=== PATIENT | female | born 1980 ===

== ENCOUNTER 2018-02-12 04:53 | Inpatient (IN) | payer BC ==
[2018-02-12] MEDS ORDERED: MISOPROSTOL 200 MCG TAB PR PRN (05:11)
[2018-02-12] MEDS ORDERED: OXYTOCIN/RINGERS LACTATE 1,000 ML IV PRN (05:11)
[2018-02-12] MEDS ORDERED: TERBUTALINE SULFATE 1 MG/ML VIAL IV PRN (05:11)
[2018-02-12] MEDS ORDERED: LIDOCAINE 1% 300 MG/30 ML SDV SC PRN (05:11)
[2018-02-12] MEDS ORDERED: IBUPROFEN 600 MG TAB PO PRN (05:11)
[2018-02-12] MEDS ORDERED: OLIVE OIL 118 ML BTL MISC PRN (05:11)
[2018-02-12] MEDS ORDERED: LR 1,000 ML IV PRN (05:11)
[2018-02-12] MEDS ORDERED: EPSOM SALT 454 GM TP PRN (05:11)
--- NOTE | 2018-02-12 05:14 | PDGENHP ---
History and Physical History and Physical: [facility] HPI: Patient is a 38 yo G 5 P3013 at 40.3 weeks ega who presents to L&D as a transfer from the [facility] for pain relief. Requesting epidural. She has been laboring off and on for the last 24 hours but became active around 2300 last night, AROM clear fluid at 2330 and the bookkeeper receptionist at the center called her complete and 0 station at midnight. She has been pushing off and on since then with little decent and has developed a swollen rim of cervix. Ita reports good activity and FHTs have been reassuring via intermittent monitoring. EDC: 02/09/2018 which is based on LMP: 05/06/2017 Her is complicated by: - AMA - h/o shoulder dystocia with last delivery Review of Systems: Constitutional: Denies any fever, chills, or fatigue HEENT: denies any visual changes, difficulty swallowing, hearing loss Cardiovascular: Denies any chest pain, palpitations, leg swelling Respiratory: denies any cough, wheezing, or shortness of breathe GI: Denies any nausea, vomiting, diarrhea, constipation : denies any dysuria, urgency, frequency, vaginal bleeding Musculoskeletal: denies any muscle or bone pain Skin: denies any rashes Neuro: denies any headache, seizures, lightheadedness, dizziness, or loss of consciousness Psychiatric: denies any depression, anxiety, or SI/HI thoughts HISTORY: Previous OB history: SAB X1, 2010-8 lb 5 oz male,2012-8 lb 13 oz male, 2014-8 lb 7 oz male, reports questionable shoulder dystocia with last -was in the tub and when removed from tub, baby delivered easily. Past medical history: none Past surgical history: none Medications: PNV Allergies (list reaction): NKDA LABS: Rh: A pos ABS: Neg Rubella: Immune HbsAg: NR HIV: NR VDRL: NR 1hr: 79 GC: Neg Chlamydia: Neg Pap: Normal GBS: neg PHYSICAL EXAM: Constitutional: WN, A&Ox3 Skin: pink, warm and dry HEENT: normocephalic atraumatic, supple Heart: RRR, no murmur Chest: CTA-B Abdomen: Soft, nontender, gravid SVE: stretchy 8-9 cm/swollen/-1 station Extremities: sml edema, negative fatoumata's sign Neuro: grossly normal Psych: normal affect assessment: Category 2 FHTs, baseline 140s +accels, intermittent variable decels to 90s, moderate variability Contractions: toco q 2-3 Assessment: 1) 38 yo G 5 P 3 with IUP@ 40.3 weeks ega - requesting epidural 2) Protracted active phase - persistent cervical rim 3) GBS neg 4) Cat 2 FHR tracing Plan: 1) Admit to L&D 2) epidural per anesthesia 3) Continuous efm - will place IUPC when comfortable with epidural to assess contraction strength - consider amnioinfusion if variables persist 4) Dr. Yanez notified of patient and EFM strip 5) Anticipate
[2018-02-12 05:24] LABS: PLATELET COUNT 172 10^3/uL (150-400)
[2018-02-12] MEDS ORDERED: BUPIVACAINE 0.25% 30 ML SDV ONE (05:39)
[2018-02-12] MEDS ORDERED: fentaNYL 2MCG/ML/BUP 0.1% RTU 100 ML BAG EP ONE (05:40)
--- NOTE | 2018-02-12 06:03 | PREANESOB ---
Anesthesia Allergies/Adverse Reactions: Allergy/AdvReac Type Severity Reaction Status Date / Time No Known Allergies Allergy Unverified 02/12/18 05:02 Visit Medications: Generic Name Dose Route Start Last Admin Trade Name Ita PRN Reason Stop Dose Admin Lactated Ringer's 1,000 mls @ 0 mls/hr 02/12/18 05:11 Lr IV 02/13/18 05:10 PRN PRN SEE PROTOCOL CONDITIONS Protocol Per Protocol Oxytocin/Lactated Ringer's 1,000 mls @ 125 mls/hr 02/12/18 05:11 Pitocin 20 Units/Lr (Premix) IV PRN PRN Post bleeding Ibuprofen 600 mg 02/12/18 05:11 Motrin PO ONCE PRN post , pain Lidocaine HCl 300 mg 02/12/18 05:11 Lidocaine Hcl 1% SC 08/11/18 05:10 ONCE PRN episiotomy Magnesium Sulfate 454 gm 02/12/18 05:11 Epsom Salt TP 08/11/18 05:10 Q1H PRN perineal discomfort Misoprostol 800 - 1,000 mcg 02/12/18 05:11 Cytotec CO ONCE PRN Vaginal Atony/Bleeding [place] Oil 118 ml 02/12/18 05:11 Sweet Oil MISC 08/11/18 05:10 ONCE PRN perineal massage Terbutaline Sulfate 0.25 mg 02/12/18 05:11 Brethine IV 08/11/18 05:10 ONCE PRN Tachysystole Discontinued Medications Generic Name Dose Route Start Last Admin Trade Name Ita PRN Reason Stop Dose Admin Bupivacaine HCl Confirm 02/12/18 05:39 Sensorcaine 0.25% Sdv Administered 02/12/18 05:40 Dose 30 ml .ROUTE .STK-MED ONE Fentanyl/Bupivacaine HCl Confirm 02/12/18 05:40 Fentanyl/Bupivacaine/Ns 2 Mcg/Ml 0.1% (Premix Administered 02/12/18 05:41 Dose 100 ml EP .STK-MED ONE - Focused Exam Mallampati Score: Class 2 Labs: 02/12/18 05:00 Patient ABO/Rh A POSITIVE 02/12/18 05:00 - Plan Consent Signed and on Chart: Yes Patient/Guardian Understands and Agrees to Plan: Yes Urgent/Emergent Case: Veronica matthews completed preop but documented later for safe timely pt care
[2018-02-12] MEDS ORDERED: ONDANSETRON 4 MG/2 ML VIAL IVP PRN (06:04)
[2018-02-12] MEDS ORDERED: METOCLOPRAMIDE 10 MG/2 ML VIAL IVP PRN (06:04)
[2018-02-12] MEDS ORDERED: PHENYLEPHRINE HCL 100 MCG/ML SYR IVP PRN (06:04)
[2018-02-12] MEDS ORDERED: fentaNYL 2MCG/ML/BUP 0.1% RTU 100 ML EP SCH (06:30)
[2018-02-12] MEDS ORDERED: LR 500 ML IV SCH (06:30)
[2018-02-12] MEDS ORDERED: LR 500 ML IV PRN ×2 (06:54→10:21)
[2018-02-12] MEDS ORDERED: OXYTOCIN/RINGERS LACTATE 500 ML IV SCH ×2 (07:00→10:30)
[2018-02-12] MEDS ORDERED: OLIVE OIL 118 ML BTL ONE (10:01)
[2018-02-12] MEDS ORDERED: AMMONIA AROMATIC 1 EACH AMP IH ONE (10:01)
[2018-02-12] MEDS ORDERED: LIDOCAINE 1% 300 MG/30 ML SDV ONE (10:01)
[2018-02-12] MEDS ORDERED: TERBUTALINE SULFATE 1 MG/ML VIAL ONE (10:01)
[2018-02-12] MEDS ORDERED: MISOPROSTOL 200 MCG TAB ONE (10:02)
[2018-02-12] MEDS ORDERED: OXYTOCIN 10 UNIT/ML VIAL ONE (10:02)
--- NOTE | 2018-02-12 10:16 | OBPROG ---
Labor Progress Note Assessment/Plan: Assessment: [id number] with IUP@ 40-3wks Protracted labor GBS Negative Cat 2 FHR Tracing Plan: Start amnioinfusion start pitocin - pt agreeable to starting at 1030 reassess 2hr/PRN Subjective/Intrapartum Course: 02/12/18 9:55 Pt doing well, states she is comfortable with ANTON, but still able to tell when she is sonal, states she also feels some vaginal pressure. Denies any pain. Objective: 02/12/18 05:00 Patient ABO/Rh A POSITIVE 02/12/18 05:00 - SVE Dilation (cm): 8 Effacement (%): 50 Station: -1 Membranes: SROM Amniotic Fluid Color: Clear - Contraction Pattern Assessment Current Contraction Pattern: Irregular - Procedures Non-surgical Procedures: IUPC Oxytocin Orders Assessment - Pre-Induction/Augmentation Assessment Gestational Age: 40 week(s) and 3 day(s) ICD10 Worksheet Patient Problems: Problems Problem Status Onset Admitted to labor and delivery Acute - ICD10 Problem Qualifiers (1) Admitted to labor and delivery
--- NOTE | 2018-02-12 15:35 | OBPROG ---
Labor Progress Note Assessment/Plan: Assessment: [id number] with IUP@ 40-3wks Protracted labor GBS Negative Cat 2 FHR Tracing Plan: cont pitocin amnioinfusion continuing at 150/hr Dr Holm aware of protracted labor/variables Subjective/Intrapartum Course: 02/12/18 9:55 Pt doing well, states she is comfortable with ANTON, but still able to tell when she is sonal, states she also feels some vaginal pressure. Denies any pain. 02/12/18 12:55 Pt doing well. will cont to reposition to facilitate baby rotation. Denies any pain, reports vaginal pressure. Objective: 02/12/18 05:00 Patient ABO/Rh A POSITIVE 02/12/18 05:00 - SVE Dilation (cm): 8 Effacement (%): 50 Station: -1 Membranes: SROM Amniotic Fluid Color: Clear - Contraction Pattern Assessment Current Contraction Pattern: Irregular - Procedures Non-surgical Procedures: IUPC Oxytocin Orders Assessment - Pre-Induction/Augmentation Assessment Gestational Age: 40 week(s) and 3 day(s) ICD10 Worksheet Patient Problems: Problems Problem Status Onset Admitted to labor and delivery Acute - ICD10 Problem Qualifiers (1) Admitted to labor and delivery
--- NOTE | 2018-02-12 15:37 | OBDEL ---
Info Type: Vaginal Presentation at Delivery: Vertex L&D Analgesia/Anesthesia Type: Epidural GBS+: No Intrapartum Medications: Generic Name Dose Route Start Last Admin Trade Name Freq PRN Reason Stop Dose Admin Diphenhydramine HCl 25 mg 02/12/18 06:25 02/12/18 06:43 Benadryl Injection IVP 08/11/18 06:24 25 mg Q4HRS PRN Administration swollen cervix Lactated Ringer's 1,000 mls @ 0 mls/hr 02/12/18 05:11 02/12/18 05:10 Lr IV 02/13/18 05:10 1,000 mls PRN PRN Administration SEE PROTOCOL CONDITIONS Protocol Per Protocol Oxytocin/Lactated Ringer's 500 mls @ 0 mls/hr 02/12/18 10:30 02/12/18 10:38 Pitocin 30 Units/Lr (Premix) IV 08/11/18 10:29 500 mls CONT NANDA Administration Protocol Per Protocol - Hospital Course Intrapartum: 02/12/18 9:55 Pt doing well, states she is comfortable with ANTON, but still able to tell when she is sonal, states she also feels some vaginal pressure. Denies any pain. 02/12/18 12:55 Pt doing well. will cont to reposition to facilitate baby rotation. Denies any pain, reports vaginal pressure. Indications for Delivery: Spontaneous Labor, SROM Vaginal Delivery - Delivery Provider Delivery Physician/CNM: Merna Ang - Labor and Delivery Onset of Contractions Date: 02/11/18 Onset of Contractions Time: 23:00 Onset of Contractions Type: Augmented Rupture of Membranes Date: 02/11/18 Rupture of Membranes Time: 23:30 Rupture of Membranes Type: Artificial Amniotic Fluid Color: Clear Dilation Complete Date: 02/12/18 Dilation Complete Time: 14:52 Placenta Delivery Date: 02/12/18 Placenta Delivery Time: 15:10 Total Hours of Labor: 16 Non-surgical Procedures: IUPC - Medications Labor Augmentation/Induction Methods Used: Pitocin Labor Augmentation/Induction Indication: Inadequate Contraction Frequency, Inadequate Contraction Strength Data KIERA: 02/09/18 Gestational Age: 40 week(s) and 3 day(s) [place] Delivery Date: 02/12/18 Delivery Time: 14:57 Sex of Infant: Male Score (1 Min): 8 Score (5 Min): 9 ICD10 Worksheet Patient Problems: Problems Problem Status Onset Admitted to labor and delivery Acute - ICD10 Problem Qualifiers (1) Admitted to labor and delivery
[2018-02-12] MEDS ORDERED: SIMETHICONE 80 MG TAB CHEW PO PRN (15:46)
[2018-02-12] MEDS ORDERED: DOCUSATE SODIUM 100 MG CAP PO PRN (15:46)
[2018-02-12] MEDS ORDERED: HYDROCORTISONE 0.5% CREAM TP PRN (15:46)
[2018-02-12] MEDS: IBUPROFEN 600 MG TAB PO SCH (16:33)
[2018-02-12] MEDS: ACETAMINOPHEN 325 MG TAB PO SCH ×2 (19:00→22:00)
[2018-02-12] MEDS ORDERED: diphenhydrAMINE 50 MG CAP PO PRN (20:09)
[2018-02-13] MEDS: IBUPROFEN 600 MG TAB PO SCH ×2 (02:03→08:07)
[2018-02-13] MEDS: ACETAMINOPHEN 325 MG TAB PO SCH (04:00)
[2018-02-13] MEDS: oxyCODONE IR 5 MG TAB PO PRN ×2 (06:15→15:08)
[2018-02-13 08:18] VITALS: BP 111/61
--- NOTE | 2018-02-13 09:55 | OBGCSDC ---
General Delivery Information - General Info : 5 Para: 3 Abortions: 1 Type: Vaginal L&D Analgesia/Anesthesia Type: Epidural Admission Date: 02/12/18 Labs: Patient ABO/Rh A POSITIVE 02/12/18 05:00 Hct 43.7 % (38.0-47.0) 02/12/18 05:00 - Hospital Course Intrapartum: 02/12/18 9:55 Pt doing well, states she is comfortable with ANTON, but still able to tell when she is sonal, states she also feels some vaginal pressure. Denies any pain. 02/12/18 12:55 Pt doing well. will cont to reposition to facilitate baby rotation. Denies any pain, reports vaginal pressure. : 02/13/18 09:54 S) Pt doing well, reports min pain and bleeding. she is ambulating and voiding without difficulty. She is . She desires discharge home today. O) VSS, afebrile constitutional: WNF, A&Ox3 HEENT: normocephalic, atraumatic, supple Heart: RRR, No murmur Chest: CTA-B Breasts: soft, nontender, not engorged, nipples Abdomen: Soft, nontender Uterus: Firm at U-2 Lochia: Minimal rubra Perineum: Intact, healing well Extremities: Trace edema, and negative Aquilino's sign Neuro: Grossly normal A) 38-year-old S/P PPD#1 P) Discharge home today Continue Pelvic rest x6wks Discussed danger signs (infection, preeclampsia, depression, heavy bleeding, etc ) RTO in 2/4/6 weeks Vaginal - Delivery Provider Delivery Physician/CNM: Merna Ang - Diagnosis Labor: Augmented Rupture of Membranes Type: Artificial Amniotic Fluid Color: Clear - Procedures Non-surgical Procedures: IUPC - Delivery Non-surgical Procedures: IUPC [place] Data KIERA: 02/09/18 Gestational Age: 40 week(s) and 4 day(s) [place] Delivery Date: 02/12/18 Delivery Time: 14:57 Sex of Infant: Male [place] Weight (gm): 4184 g Score (1 Min): 8 Score (5 Min): 9
--- NOTE | 2018-02-17 05:22 | POSTANESTH ---
Post Anesthetic Evaluation Cardiovascular Status: Normal, Stable Respiratory Status: Normal, Stable Level of Consciousness/Mental Status: Can Participate in Eval Pain Control: Adequate, Prn Tx Ordered Nausea/Vomiting Control: Adequate, Prn Tx Ordered Complications Possibly Related to Anesthesia: None Noted
== END 2018-02-13 15:40 | disposition home or self-care (01) | DRG 807 ==
LOC: FLD 04:53 → FOB 18:00
PROVIDERS: ADMIT Advanced Practice Midwife; ATTEND Advanced Practice Midwife
PROC: 10E0XZZ Delivery of Products of Conception, External Approach (ICD-10-PCS; principal; 2018-02-12)
PROC: 10907ZC Drainage of Amniotic Fluid, Therapeutic from Products of Conception, Via Natural or Artificial Opening (ICD-10-PCS; principal; 2018-02-12)
DX: O63.9 Long labor, unspecified (principal); Z37.0 Single live birth; Z3A.40 40 weeks gestation of pregnancy
CPT/HCPCS: J1200; J2370; J2590; J3105